=== PATIENT | male | born 1965 | race Caucasian/White ===

== ENCOUNTER → 2024-07-17 09:08 | Outpatient (CLI) | payer OTHER, SELFPAY ==
--- NOTE | 2024-07-17 09:14 | DI.RAD.S_ITS ---
PROCEDURE: XR KNEE RT 3V INDICATIONS: BACK PAIN TECHNIQUE: 3 views of the knee were acquired. COMPARISON: None. FINDINGS: Bones: No fractures or dislocations. No suspicious bony lesions. Moderate medial and lateral tibiofemoral and patellofemoral compartment narrowing with associated osteophytosis. Soft tissues: Small joint effusion. No suspicious soft tissue calcifications. IMPRESSION: KL grade 2 tricompartmental osteoarthritis without evidence of acute osseous abnormality. Small joint effusion noted. Dictated by: Leroy Armstrong M.D. on 07/18/2024 at 4:54 Approved by: Leroy Armstrong M.D. on 07/18/2024 at 4:55
--- NOTE | 2024-07-17 09:14 | DI.RAD.S_ITS ---
PROCEDURE: XR KNEE LT 3V INDICATIONS: BACK PAIN TECHNIQUE: 3 views of the knee were acquired. COMPARISON: None. FINDINGS: Bones: No fractures or dislocations. No suspicious bony lesions. Moderate medial and lateral tibiofemoral and patellofemoral compartment narrowing with associated osteophytosis. Soft tissues: Small joint effusion. No suspicious soft tissue calcifications. IMPRESSION: KL grade 2 tricompartmental osteoarthritis without evidence of acute osseous abnormality. Small joint effusion noted. Dictated by: Leroy Armstrong M.D. on 07/18/2024 at 4:53 Approved by: Leroy Armstrong M.D. on 07/18/2024 at 4:54
--- NOTE | 2024-07-17 09:34 | DI.RAD.S_ITS ---
PROCEDURE: XR CERVICAL SPINE 2V OR 3V INDICATIONS: VA DISABILITY TECHNIQUE: 3 view(s) of the cervical spine were acquired. COMPARISON: None. FINDINGS: Bones: No fractures or dislocations to the T1 level. The lateral masses of C1 appear intact on the odontoid view. Moderate degenerative changes include moderate to severe C6-7 disc height loss, moderate C5-6 disc height loss and associated anterior osteophytosis at levels C4-C5 through C6-C7. Adjacent endplate sclerosis is noted. No suspicious bony lesions. Soft tissues: No prevertebral soft tissue swelling. IMPRESSION: Degenerative change without evidence of acute osseous abnormality. Dictated by: Leroy Armstrong M.D. on 07/18/2024 at 4:51 Approved by: Leroy Armstrong M.D. on 07/18/2024 at 4:53
== END ==
PROVIDERS: Referring Provider Chiropractor; Visit Provider Chiropractor
DX: M47.812 Spondylosis without myelopathy or radiculopathy, cervical region (principal); M13.861 Other specified arthritis, right knee; M13.862 Other specified arthritis, left knee; M25.462 Effusion, left knee; M25.461 Effusion, right knee; M54.50 Low back pain, unspecified
CPT/HCPCS: 72040; 73562